=== PATIENT | female | born 1940 | race Hispanic/Latino ===

== ENCOUNTER → 2019-11-29 | Outpatient (CLI) | payer BC ==
[~2019-11-29] MED LIST: GLIMEPIRIDE2 MG PO; GLYBURID-METFO1 EACH PO; LEVEMIR100 UNIT/1 SC; LEXAPRO10 MG PO; METFORMIN HCL500 M2 PO; NORVASC5 MG PO; NOVOLOG100 UNIT/1 SC; NYSTATIN100000 UNI PO; PREDNISONE10 MG PO; PREDNISONE5 MG PO; ULTRAM 50MG50 MG PO; ZOLPIDEM TARTRAT5 MG PO
--- NOTE | 2019-11-30 09:37 | Diagnostic Imaging Report ---
EXAM: BONE MINERAL DENSITY HISTORY: Bone mineralization evaluation COMPARISON: None DISCUSSION: Evaluation of the left hip and lumbar spine was performed utilizing DEXA Hologic bone densitometer. The study is technically adequate. Left hip femoral neck bone mineral density: 0.78 g/cm2, T-score is -0.6, Z-score is 1.7. Left hip total bone mineral density: 0.94 g/cm2, T-score is 0.0, Z-score is 2.1. Lumbar spine total bone mineral density: 1.24 gm/cm2, T-score is 1.8, Z-score is 4.4. Impression: Bone mineralization by WHO Classification is normal, the fracture risk is not increased. Signed by: Dr. Dawit Doty M.D. on 11/30/2019 9:31 AM
== END ==
LOC: MAMMO 13:34
DX: Z12.31 Encounter for screening mammogram for malignant neoplasm of breast (principal); M89.9 Disorder of bone, unspecified; Z78.0 Asymptomatic menopausal state
CPT/HCPCS: 77067; 77080

== ENCOUNTER → 2021-04-17 | Day surgery (SDC) | payer BC, MEDICARE ==
[2021-04-15 12:10] LABS: BASOPHILS % 0.4 % (0.0-1.0); EOSINOPHILS # (AUTO) 0.2 (0.0-0.4); HEMATOCRIT 40.1 % (34.2-44.1); HEMOGLOBIN 12.9 g/dL (12.0-16.0); LYMPHOCYTES # (AUTO) 3.3 (1.0-3.2); LYMPHOCYTES % 32.2 % (18.0-39.1); MEAN CORPUSCULAR HEMOGLOBIN 28.8 pg (28-32); MEAN CORPUSCULAR HGB CONC 32.2 g/dL (31-35); MEAN CORPUSCULAR VOLUME 89.5 fL (81-99); MONOCYTES # (AUTO) 0.7 (0.2-0.8); MONOCYTES % 6.3 % (4.4-11.3); NEUTROPHILS # (AUTO) 6.1 (2.1-6.9); NEUTROPHILS % 58.8 % (38.7-80.0); PLATELET COUNT 175 x10e3/uL (140-360); RED BLOOD COUNT 4.48 x10e6/uL (3.6-5.1); RED CELL DISTRIBUTION WIDTH 13.2 % (11.7-14.4)
[~2021-04-17] MED LIST changes: +DONEPEZIL HCL10 MG PO; +HUMALOG100 UNIT/1 INJ; +JANUVIA100 MG PO; +LIPITOR10 MG PO; +LOSARTAN POTASS25 MG PO; +NAMENDA10 MG PO; +OMEPRAZOLE40 MG PO; +TRAZODONE HCL100 MG PO; +VITAMIN D3 PO
[2021-04-17 11:50] VITALS: BP 114/60
== END | disposition home or self-care (01) ==
LOC: OR 09:32
PROVIDERS: ATTEND Internal Medicine Gastroenterology
DX: K29.50 Unspecified chronic gastritis without bleeding (principal); B96.81 Helicobacter pylori [H. pylori] as the cause of diseases classified elsewhere; K31.89 Other diseases of stomach and duodenum; K21.9 Gastro-esophageal reflux disease without esophagitis; K20.90 Esophagitis, unspecified without bleeding; Z86.010 Personal history of colon polyps; K58.9 Irritable bowel syndrome, unspecified; R15.1 Fecal smearing; R19.7 Diarrhea, unspecified; E11.9 Type 2 diabetes mellitus without complications; F03.90 Unspecified dementia, unspecified severity, without behavioral disturbance, psychotic disturbance, mood disturbance, and anxiety; F41.9 Anxiety disorder, unspecified; F32.9 Major depressive disorder, single episode, unspecified; Z88.6 Allergy status to analgesic agent; Z88.0 Allergy status to penicillin; Z79.4 Long term (current) use of insulin; Z68.27 Body mass index [BMI] 27.0-27.9, adult
CPT/HCPCS: 36415 ×2; 43239; 82948; 85025; 88305; 88312; 93005; U0002

== ENCOUNTER → 2021-04-19 | Outpatient (CLI) | payer MEDICARE | LOC: US 09:49 | PROVIDERS: ATTEND Internal Medicine Gastroenterology | DX: R14.0 Abdominal distension (gaseous) (principal); R14.2 Eructation | CPT/HCPCS: 76700 ==

== ENCOUNTER 2022-06-06 10:28 | Observation (INO) | payer BC, MEDICARE ==
[~2022-06-06] VITALS: Ht 152.4 cm; Wt 68.6 kg
[2022-06-06 11:32] LABS: BASOPHILS % 0.4 % (0.0-1.0); EOSINOPHILS # (AUTO) 0.2 (0.0-0.4); EOSINOPHILS % 1.6 % (0.0-6.0); HEMATOCRIT 41.7 % (34.2-44.1); HEMOGLOBIN 13.1 g/dL (12.0-16.0); LYMPHOCYTES # (AUTO) 1.8 (1.0-3.2); LYMPHOCYTES % 16.2 % (18.0-39.1); MEAN CORPUSCULAR HEMOGLOBIN 28.5 pg (28-32); MEAN CORPUSCULAR HGB CONC 31.4 g/dL (31-35); MEAN CORPUSCULAR VOLUME 90.8 fL (81-99); MONOCYTES # (AUTO) 0.8 (0.2-0.8); NEUTROPHILS % 74.4 % (38.7-80.0); PLATELET COUNT 178 x10e3/uL (140-360); RED BLOOD COUNT 4.59 x10e6/uL (3.6-5.1); RED CELL DISTRIBUTION WIDTH 13.1 % (11.7-14.4)
[2022-06-06 11:51] LABS: ALBUMIN 3.9 g/dL (3.5-5.0); ALBUMIN/GLOBULIN RATIO 1.1 (0.8-2.0); ANION GAP 17.9 mmol/L (8-16); CREATININE, SERUM 0.88 mg/dL (0.57-1.11); POTASSIUM 3.9 mmol/L (3.5-5.1)
[2022-06-06 11:57] LABS: CREATINE KINASE MB 1.6 ng/mL (0-5.0)
[2022-06-06] MEDS ORDERED: DEXTROSE 50% SYRINGE 50 ML IV PRN (16:15)
[2022-06-06] MEDS: INSULIN LISPRO 100 UNIT/1 ML 3ML VIAL SQ SCH ×2 (16:30→21:00)
[2022-06-06] MEDS ORDERED: LOPERAMIDE HCL 2 MG CAP PO PRN (16:45)
[2022-06-06] MEDS ORDERED: ALBUTEROL/IPRATROPIUM 3 ML NEB NEB PRN (16:45)
[2022-06-06] MEDS: ENOXAPARIN SOD INJ 40 MG/0.4 ML SYR SC SCH (18:28)
[2022-06-06] MEDS: LEVOFLOXACIN 500MG/D5W 100ML 100 ML IV SCH (18:28)
[2022-06-06 19:00] LABS: AMYLASE 209 U/L (25-125); LIPASE 10 U/L (8-78)
[2022-06-06 19:53] LABS: CLARITY,URINE CLEAR (CLEAR); COLOR,URINE YELLOW (YELLOW); KETONES,URINE TRACE (NEGATIVE); LEUKOCYTE ESTERASE ,URINE NEGATIVE (NEGATIVE); NITRITE,URINE NEGATIVE (NEGATIVE); PROTEIN,URINE DIPSTICK NEGATIVE (NEGATIVE); URINE UROBILINOGEN 0.2 mg/dL (0.2 - 1)
[2022-06-06 19:56] LABS: BACTERIA,URINE FEW /HPF; EPITHELIAL CELLS,URINE FEW /LPF; RBC,URINE 0-5 /HPF (0-5); WBC,URINE (MAN) 0-5 /HPF (0-5)
[2022-06-06 20:00] VITALS: BP 118/54
[2022-06-06] MEDS ORDERED: ONDANSETRON HCL INJ 2MG/ML 2ML 2 MG/ML VIAL IV PRN (20:15)
[2022-06-06 22:00] VITALS: BP 118/54
[2022-06-07] VITALS (9 sets, daily range): BP systolic 97–130; BP diastolic 43–58
[2022-06-07 06:37] LABS: BASOPHILS % 0.5 % (0.0-1.0); EOSINOPHILS # (AUTO) 0.3 (0.0-0.4); EOSINOPHILS % 3.8 % (0.0-6.0); HEMOGLOBIN 11.6 g/dL (12.0-16.0); LYMPHOCYTES % 35.1 % (18.0-39.1); MEAN CORPUSCULAR HEMOGLOBIN 28.5 pg (28-32); MEAN CORPUSCULAR HGB CONC 33.1 g/dL (31-35); MONOCYTES # (AUTO) 0.7 (0.2-0.8); MONOCYTES % 8.8 % (4.4-11.3); NEUTROPHILS # (AUTO) 4.3 (2.1-6.9); NEUTROPHILS % 51.4 % (38.7-80.0); PLATELET COUNT 166 x10e3/uL (140-360); RED BLOOD COUNT 4.07 x10e6/uL (3.6-5.1); RED CELL DISTRIBUTION WIDTH 13.2 % (11.7-14.4)
[2022-06-07 07:21] LABS: AMYLASE 81 U/L (25-125); LIPASE 7 U/L (8-78)
[2022-06-07 07:28] LABS: CREATINE KINASE MB 1.5 ng/mL (0-5.0)
[2022-06-07] MEDS ORDERED: LEVOFLOXACIN 750MG/D5W 150ML IV SCH (08:00)
[2022-06-07] MEDS: INSULIN LISPRO 100 UNIT/1 ML 3ML VIAL SQ SCH ×9 (08:00→20:44)
[2022-06-07 09:00] LABS: ALBUMIN 3.6 g/dL (3.5-5.0); ALBUMIN/GLOBULIN RATIO 1.2 (0.8-2.0); ANION GAP 17.3 mmol/L (8-16); CALCIUM 8.7 mg/dL (8.4-10.2); CREATININE, SERUM 0.84 mg/dL (0.57-1.11); POTASSIUM 3.3 mmol/L (3.5-5.1)
[2022-06-07 09:12] LABS: MAGNESIUM 1.1 MG/DL (1.3-2.1)
[2022-06-07] MEDS ORDERED: MAGNESIUM SULFATE 2GM/50ML 50 ML IV ONE ×2 (10:00→10:30)
[2022-06-07] MEDS ORDERED: POTASSIUM CHLORIDE 20 MEQ TAB CR PO NR (10:00)
[2022-06-07] MEDS: ACETAMINOPHEN 325 MG TAB PO PRN ×2 (10:18→20:57)
[2022-06-07] MEDS: MEMANTINE 10 MG TAB PO SCH ×2 (10:19→17:26)
[2022-06-07] MEDS: METFORMIN HCL 500 MG TAB CR PO SCH ×2 (10:19→17:26)
[2022-06-07] MEDS: SITAGLIPTIN 100 MG TAB PO SCH (10:19)
[2022-06-07] MEDS: PANTOPRAZOLE SOD 40 MG TABEC PO SCH (10:19)
[2022-06-07] MEDS: LOSARTAN POTASSIUM 25 MG TAB PO SCH (10:19)
[2022-06-07] MEDS ORDERED: SODIUM CHLORIDE 0.9% 250ML 250 ML ONE (10:27)
[2022-06-07 15:31] LABS: CREATINE KINASE MB 1.3 ng/mL (0-5.0)
[2022-06-07] MEDS: LEVOFLOXACIN 500MG/D5W 100ML 100 ML IV SCH (17:26)
[2022-06-07] MEDS: GUAIFENESIN/CODEINE 5 ML LIQD PO PRN ×2 (17:26→23:35)
[2022-06-07] MEDS: ENOXAPARIN SOD INJ 40 MG/0.4 ML SYR SC SCH (17:26)
[2022-06-07] MEDS: TRAZODONE HCL 50 MG TAB PO SCH (20:45)
[2022-06-07] MEDS: DONEPEZIL HCL 5 MG TAB PO SCH (20:46)
[2022-06-07] MEDS: ESCITALOPRAM OXALATE 10 MG TAB PO SCH (20:46)
[2022-06-07] MEDS: ATORVASTATIN 10 MG TAB PO SCH (20:48)
[2022-06-07] MEDS: INSULIN GLARGINE 100 UNITS/ML VIAL SQ SCH (20:53)
[2022-06-08] VITALS (7 sets, daily range): BP systolic 88–134; BP diastolic 42–61
[2022-06-08 06:27] LABS: BASOPHILS % 0.5 % (0.0-1.0); EOSINOPHILS # (AUTO) 0.4 (0.0-0.4); EOSINOPHILS % 4.5 % (0.0-6.0); HEMATOCRIT 35.3 % (34.2-44.1); HEMOGLOBIN 11.6 g/dL (12.0-16.0); LYMPHOCYTES # (AUTO) 3.2 (1.0-3.2); LYMPHOCYTES % 36.6 % (18.0-39.1); MEAN CORPUSCULAR HEMOGLOBIN 28.6 pg (28-32); MEAN CORPUSCULAR HGB CONC 32.9 g/dL (31-35); MEAN CORPUSCULAR VOLUME 86.9 fL (81-99); MONOCYTES # (AUTO) 0.8 (0.2-0.8); MONOCYTES % 9.1 % (4.4-11.3); NEUTROPHILS # (AUTO) 4.2 (2.1-6.9); NEUTROPHILS % 48.8 % (38.7-80.0); PLATELET COUNT 183 x10e3/uL (140-360); RED BLOOD COUNT 4.06 x10e6/uL (3.6-5.1); RED CELL DISTRIBUTION WIDTH 13.4 % (11.7-14.4)
[2022-06-08 06:59] LABS: ANION GAP 15.2 mmol/L (8-16); CALCIUM 8.8 mg/dL (8.4-10.2); CREATININE, SERUM 0.85 mg/dL (0.57-1.11); MAGNESIUM 2.2 MG/DL (1.3-2.1); POTASSIUM 4.2 mmol/L (3.5-5.1)
[2022-06-08] MEDS: INSULIN LISPRO 100 UNIT/1 ML 3ML VIAL SQ SCH ×7 (07:30→21:00)
[2022-06-08 08:31] LABS: ALBUMIN 3.4 g/dL (3.5-5.0)
[2022-06-08 08:38] LABS: ALBUMIN/GLOBULIN RATIO 1.1 (0.8-2.0)
[2022-06-08] MEDS: PANTOPRAZOLE SOD 40 MG TABEC PO SCH (09:08)
[2022-06-08] MEDS: LOSARTAN POTASSIUM 25 MG TAB PO SCH (09:08)
[2022-06-08] MEDS: SITAGLIPTIN 100 MG TAB PO SCH (09:09)
[2022-06-08] MEDS: METFORMIN HCL 500 MG TAB CR PO SCH ×2 (09:09→16:49)
[2022-06-08] MEDS: MEMANTINE 10 MG TAB PO SCH ×2 (09:10→16:49)
[2022-06-08] MEDS ORDERED: GUAIFENESIN/CODEINE 5 ML LIQD PO PRN (12:15)
[2022-06-08] MEDS: ENOXAPARIN SOD INJ 40 MG/0.4 ML SYR SC SCH (16:49)
[2022-06-08] MEDS: LEVOFLOXACIN 500MG/D5W 100ML 100 ML IV SCH (16:49)
[2022-06-08] MEDS: INSULIN GLARGINE 100 UNITS/ML VIAL SQ SCH (21:00)
[2022-06-08] MEDS: ATORVASTATIN 10 MG TAB PO SCH (21:50)
[2022-06-08] MEDS: ESCITALOPRAM OXALATE 10 MG TAB PO SCH (21:50)
[2022-06-08] MEDS: TRAZODONE HCL 50 MG TAB PO SCH (21:50)
[2022-06-08] MEDS: DONEPEZIL HCL 5 MG TAB PO SCH (21:51)
[2022-06-09 00:08] VITALS: BP 110/52
[2022-06-09 04:12] VITALS: BP 135/57
[2022-06-09 05:36] LABS: BASOPHILS % 0.5 % (0.0-1.0); EOSINOPHILS # (AUTO) 0.2 (0.0-0.4); EOSINOPHILS % 2.6 % (0.0-6.0); HEMATOCRIT 34.3 % (34.2-44.1); HEMOGLOBIN 11.3 g/dL (12.0-16.0); LYMPHOCYTES # (AUTO) 2.7 (1.0-3.2); LYMPHOCYTES % 33.6 % (18.0-39.1); MEAN CORPUSCULAR HGB CONC 32.9 g/dL (31-35); MEAN CORPUSCULAR VOLUME 87.9 fL (81-99); MONOCYTES # (AUTO) 0.7 (0.2-0.8); NEUTROPHILS # (AUTO) 4.5 (2.1-6.9); NEUTROPHILS % 54.9 % (38.7-80.0); PLATELET COUNT 176 x10e3/uL (140-360); RED CELL DISTRIBUTION WIDTH 13.4 % (11.7-14.4)
[2022-06-09 06:00] LABS: ANION GAP 13.8 mmol/L (8-16); CALCIUM 8.7 mg/dL (8.4-10.2); CREATININE, SERUM 0.77 mg/dL (0.57-1.11); POTASSIUM 3.8 mmol/L (3.5-5.1)
[2022-06-09 06:44] VITALS: BP 135/57
[2022-06-09] MEDS: INSULIN LISPRO 100 UNIT/1 ML 3ML VIAL SQ SCH ×4 (07:30→12:00)
[2022-06-09 08:25] VITALS: BP 125/42
[2022-06-09 08:36] VITALS: BP 125/42
[2022-06-09] MEDS: MEMANTINE 10 MG TAB PO SCH (09:01)
[2022-06-09] MEDS: PANTOPRAZOLE SOD 40 MG TABEC PO SCH (09:01)
[2022-06-09] MEDS: SITAGLIPTIN 100 MG TAB PO SCH (09:01)
[2022-06-09] MEDS: METFORMIN HCL 500 MG TAB CR PO SCH (09:01)
[2022-06-09] MEDS: LOSARTAN POTASSIUM 25 MG TAB PO SCH (09:03)
[2022-06-09 12:11] VITALS: BP 125/50
[2022-06-09] MEDS ORDERED: ONDANSETRON HCL 4 MG ORAL DISINTEGRATING TAB PO PRN (14:45)
[2022-06-09] MEDS ORDERED: LEVOFLOXACIN 500 MG TAB PO SCH (17:00)
== END 2022-06-09 14:50 | disposition home or self-care (01) ==
LOC: ER 10:36 → ERHOLD 16:11 → MED/SURG3 20:20
PROVIDERS: ADMIT Internal Medicine; ATTEND Internal Medicine
DX: J18.9 Pneumonia, unspecified organism (principal); E78.2 Mixed hyperlipidemia; F03.90 Unspecified dementia, unspecified severity, without behavioral disturbance, psychotic disturbance, mood disturbance, and anxiety; E11.65 Type 2 diabetes mellitus with hyperglycemia; Z79.4 Long term (current) use of insulin; J96.01 Acute respiratory failure with hypoxia; E11.69 Type 2 diabetes mellitus with other specified complication; Z20.822 Contact with and (suspected) exposure to COVID-19; I11.9 Hypertensive heart disease without heart failure; E83.42 Hypomagnesemia; E87.6 Hypokalemia
CPT/HCPCS: 36415 ×4; 71045 ×3; 80048; 80053 ×3; 81001; 82140; 82150 ×2; 82550 ×2; 82553 ×2; 82948 ×4; 83036; 83518; 83690 ×2; 83735 ×2; 83880; 84443; 84484 ×2; 85025 ×4; 87040; 87070; 87449; 93005; 97116; 97161; 99284; G0378 ×4; J0456; J1650 ×3; J1815; J1956 ×3; J3475; J7050 ×2; S0164 ×3; U0002

== ENCOUNTER → 2024-02-17 | Outpatient (RCR) | payer OTHER | END | disposition home or self-care (01) | LOC: PT 12:46 | PROVIDERS: ATTEND Internal Medicine | DX: F03.90 Unspecified dementia, unspecified severity, without behavioral disturbance, psychotic disturbance, mood disturbance, and anxiety (principal); R41.3 Other amnesia ==

== ENCOUNTER 2024-03-17 12:50 | Outpatient (RCR) | payer OTHER | END 2024-03-19 | LOC: PT 12:50 | PROVIDERS: ATTEND Internal Medicine | DX: R53.81 Other malaise (principal); F03.A0 Unspecified dementia, mild, without behavioral disturbance, psychotic disturbance, mood disturbance, and anxiety ==

== ENCOUNTER 2024-03-22 11:41 | Outpatient (RCR) | payer OTHER | END 2024-04-18 | LOC: PT 11:41 | PROVIDERS: ATTEND Internal Medicine | DX: R53.81 Other malaise (principal); F03.A0 Unspecified dementia, mild, without behavioral disturbance, psychotic disturbance, mood disturbance, and anxiety ==

== ENCOUNTER 2024-06-21 12:14 | Emergency (ER) | payer OTHER ==
[~2024-06-21] VITALS: Ht 149.9 cm; Wt 64.0 kg
[2024-06-21 12:20] VITALS: PULSE 100; RESP 16; TEMP 98.4
[2024-06-21] MEDS ORDERED: TYLENOL325 MG PO (13:15)
[2024-06-21] MEDS ORDERED: CEFDINIR300 MG PO (13:15)
[2024-06-21] MEDS ORDERED: PROBIOTIC & AC1 EACH PO (13:20)
[2024-06-21 13:28] VITALS: BP 134/60; PULSE 87; RESP 16; TEMP 99.7; O2SAT 93
== END 2024-06-21 13:25 | disposition home or self-care (01) ==
LOC: FSED 12:18
DX: R05.9 Cough, unspecified (principal); J02.9 Acute pharyngitis, unspecified; I10 Essential (primary) hypertension; E11.9 Type 2 diabetes mellitus without complications; G30.9 Alzheimer's disease, unspecified; F02.80 Dementia in other diseases classified elsewhere, unspecified severity, without behavioral disturbance, psychotic disturbance, mood disturbance, and anxiety; Z11.52 Encounter for screening for COVID-19
CPT/HCPCS: 0223U; 83518; 87400; 99284